=== PATIENT | male | born 1990 | race Caucasian/White ===

== ENCOUNTER 2020-05-07 06:08 | Day surgery (SDC) | payer BC ==
--- NOTE | 2020-05-04 08:18 | HP ---
PATIENT: MARK GRACE MEDICAL RECORD: [id number] ACCOUNT: [id number] LOCATION:[facility] : 88 ADMISSION DATE: 05/07/20 PCP: HISTORY AND PHYSICAL EXAMINATION HISTORY OF PRESENT ILLNESS: Mark is a 29-year-old male with persistent problems with recurrent pharyngitis and caseous tonsillitis. He has been admitted for tonsillectomy. PAST MEDICAL HISTORY: Otherwise negative. PAST SURGICAL HISTORY: None. CURRENT MEDICATIONS: Vyvanse. ALLERGIES: No known drug allergies. PHYSICAL EXAMINATION: GENERAL: He is healthy appearing, developmentally normal. FACE: Normal, symmetric, no lesions. EYES: Sclerae and conjunctivae are normal. EARS: Canals and TMs normal. NOSE: No mass, polyps or drainage. ORAL CAVITY AND OROPHARYNX: He has got 3-4+ tonsils with copious tonsilliths and chronically inflamed appearance. NECK: No masses, no adenopathy. CHEST: Clear. CARDIOVASCULAR: Regular rate and rhythm, no murmur. EXTREMITIES: Normal. IMPRESSION: Chronic pharyngitis and caseous tonsillitis. PLAN: Tonsillectomy. TRANSINT:[id number] Voice Confirmation ID: [id number] DOCUMENT ID: [id number] LUZ ELENA JARAMILLO MD at 0818 CC: [id number] DICTATION DATE: 05/03/20924 [facility]: 05/03/20 1117 [address] [facility] [address] [place] [address]
[~2020-05-07] VITALS: Ht 190.5 cm; Wt 140.6 kg
--- NOTE | ~2020-05-07 | OP ---
PATIENT NAME: CRISTHIAN GRACE MEDICAL RECORD: [id number] :88 [facility] DATE: SURGEON: LUZ ELENA GOLDEN MD DATE OF OPERATION: 05/07/2020 PREOPERATIVE DIAGNOSIS: Chronic tonsillitis. POSTOPERATIVE DIAGNOSIS: Chronic tonsillitis. PROCEDURE: Tonsillectomy. SURGEON: Luz Elena Golden MD ANESTHESIA: General orotracheal. BLOOD LOSS: 10 mL. SPECIMENS: Right and left tonsils. COMPLICATIONS: None. DISPOSITION: Recovery stable. DESCRIPTION OF PROCEDURE: He was brought to operating room, placed in supine position, sedated and intubated by anesthesia. The eyes were taped. Table was turned 90 degrees. Head drape was applied and he was positioned for tonsillectomy. Using a headlight, a Jose D-Triston mouth gag was carefully inserted and elevated on a towel on the chest. The palate was examined and palpated. It was normal. A red rubber catheter was placed to the right side of the nose and pharynx was grasped with tonsil clamp to retract the soft palate. Using a mirror, the nasopharynx was examined. There was really no significant adenoid tissue. The choanae and eustachian orifices were normal. The red rubber catheter was let down and removed. The right tonsil was grasped at the superior pole with a straight Allis clamp. There was copious tonsilliths. Spatula tip cautery on a setting of 8 was used to dissect out the tonsil along its capsule, preserving the anterior and posterior tonsillar pillar. Suction cautery on a setting of 18 was used to control bleeding. The left tonsil was removed in the same fashion. Again, copious tonsilliths and caseous material. Once both tonsils were out, both sides of the nose were irrigated with saline. The pharynx was suctioned. Tonsillar fossae were agitated. Suction cautery on a setting of 18 was used to control minimal oozing. With the field completely clean and dry, the Jose D-Triston mouth gag was let down and removed. He was awakened, extubated, and transported to recovery in good condition. No complications. NTS:[id number] Voice Confirmation ID: [id number] DOCUMENT ID: [id number] OPERATIVE REPORT [id number] CRISTHIAN GRACE LUZ ELENA GOLDEN MD CC: [id number] DICTATION DATE: 05/07/20 0951 [facility] O[facility]ERVER: 05/07/202035 [facility] 05/07/20 [id number] [place] [address]
[~2020-05-07 06:08] MED LIST: OMEPRAZOLE CAP 20M PO; VYVANSE70 MG PO
[2020-05-07 06:48] VITALS: BP 148/80; Ht 190.5 cm; Wt 140.6 kg
--- NOTE | 2020-05-07 11:45 | NUR ---
DISCHARGE INSTRUCTIONS REVIEWED WITH PATIENT AND SPOUSE, DISCHARGED HOME VIA WHEELCHAIR TO PRIVATE VEHICLE WITH SPOUSE
== END 2020-05-07 11:45 | disposition home or self-care (01) ==
LOC: D.OPS 06:08
PROVIDERS: ATTEND Otolaryngology
DX: J35.01 Chronic tonsillitis (principal)